=== PATIENT | male | born 1940 | race Caucasian/White ===

== ENCOUNTER 2021-04-13 09:42 | Emergency (ER) | payer OTHER, MEDICARE ==
[2021-04-13] MEDS ORDERED: Sodium Chloride 0.9% 10 ML Syringe FLUSH PRN (09:47)
--- NOTE | 2021-04-13 09:53 | EDM.PDOC ---
ED HPI GENERAL MEDICAL PROBLEM - General Chief Complaint: Back Pain or Injury Stated Complaint: LEFT LOWER BACK PAIN Time Seen by Provider: 04/13/21 09:44 - History of Present Illness INITIAL COMMENTS - FREE TEXT/NARRATIVE: Harpal, 80-year-old male, presents with left-sided back pain/flank pain that became severe this morning. He is somewhat restricted in his activities secondary of a "fractured neck" with cervical collar in place. He denies any activity, actually is experiencing lessened activity, due to his health that would have promoted this. States he has recent knee replacement roughly 6 weeks with coincidence of wh eelchair positioning that tipped leading to the cervical fracture. Claims his knee is hot and has a cooling device that they use for that. Has not used it in the past 24 hours. Denies chest pain shortness of breath or bowel issues. Denies fever chills or any other health concerns. No exposure or risk for COVID-19. Vaccinated with Moderna including booster. Onset: Today, Sudden Duration: Minutes:, Resolved Prior to Arrival, Waxing/Waning Location: Reports: Back Quality: Reports: Sharp Severity: Severe Improves with: Reports: None Worsens with: Reports: Movement - Related Data Allergies Allergy/AdvReac Type Severity Reaction Status Date / Time No Known Drug Allergies Allergy Cannot Verified 04/13/21 09:56 Remember Home Meds: Home Meds Digoxin [Lanoxin] 0.25 mg PO DAILY 01/03/15 [History] Acetaminophen [Tylenol] 650 mg PO Q4H 04/13/21 [History] Apixaban [Eliquis] 5 mg PO BID 04/13/21 [History] Carboxymethylcellulose Sodium [Refresh Tears 0.5%] 1 drop EYEBOTH TID PRN 04/13/21 [History] Diclofenac Sodium [Voltaren 1% Gel] 2 g TOP QID PRN 04/13/21 [History] Finasteride [Proscar] 5 mg PO DAILY 04/13/21 [History] Magnesium Hydroxide [Milk of Magnesia] 30 ml PO BID PRN 04/13/21 [History] Melatonin 3 mg PO BEDTIME 04/13/21 [History] Metoprolol Succinate [Toprol Xl] 75 mg PO BID 04/13/21 [History] Mineral Oil/Petrolatum,White [Hydrocerin Crm] 1 applic TOP BID PRN 04/13/21 [History] Sennosides/Docusate Sodium [Senna-Docusate Sodium Tablet] 2 tab PO BID 04/13/21 [History] Past Medical History Cardiovascular History: Reports: None Respiratory History: Reports: None Gastrointestinal History: Reports: Chronic Constipation Genitourinary History: Reports: None Musculoskeletal History: Reports: Fracture (cervical), Neck Pain, Chronic Neurological History: Reports: None Psychiatric History: Reports: None - Past Surgical History Musculoskeletal Surgical History: Reports: Joint Replacement (right knee) Social & Family History - Family History Family Medical History: No Pertinent Family History - Tobacco Use Tobacco Use Status *Q: Former Tobacco User - Living Situation & Occupation Living situation: Reports: with Family ED ROS GENERAL - Review of Systems Review Of Systems: Comprehensive ROS is negative, except as noted in HPI. ED EXAM, GENERAL - Physical Exam Exam: See Below Free Text/Narrative:: Alert, oriented, able to arise from the ambulance cart, stand, ambulate and pivot to the bed with slight pain in the left lower back/posterior flank region. He has a cervical brace in place that he states he removes only for bathing and has no motion/limited motion until it is replaced. This is been in place for roughly 6 weeks in association with the same timing for his knee replacement to the right side which she states remains "hot" and has a device at home for cooling. Infection was ruled out. Thorax is mildly diminished with no wheezes nor crackles. Cardiac S1-S2 with a grade 1 systolic murmur best heard at the base. Abdomen is soft bowel sounds are present with no tenderness, he acknowledges chronic constipation using prune juice daily. There is no pain to percussion of the flank with no pain worsened/to induce to deep palpation with him stating "you cannot touch it it is deep inside". His right lower extremity is swollen at the knee and warm to touch with no erythema, well healed slightly darkened incisional line/scar. There is edema to the lower extremity with skin warm and dry. Left lower extremity is benign cool to touch and no edema. rectal is deferred. Course - Vital Signs Last Recorded V/S: Last Vital Signs Temp 97 F 04/13/21 09:51 Pulse 85 04/13/21 10:54 Resp 20 04/13/21 09:56 BP 128/65 04/13/21 10:54 Pulse Ox 95 04/13/21 10:54 - Orders/Labs/Meds Orders: Active Orders 24 hr Category Date Time Status Peripheral IV Care [RC] . DIRECTED Care 04/13/21 09:47 Active Sodium Chloride 0.9% [Normal Saline] 1,000 ml Med 04/13/21 10:00 Active IV ASDIRECTED Sodium Chloride 0.9% [Saline Flush] Med 04/13/21 09:47 Active 10 ml FLUSH Q8HR PRN Peripheral IV Insertion Adult [OM.PC] Stat Oth 04/13/21 09:47 Ordered Medication Orders Sodium Chloride (Normal Saline) 1,000 mls @ 500 mls/hr IV ASDIRECTED SLOANE Last Admin: 04/13/21 09:58 Dose: 500 mls/hr Documented by: KAREY Sodium Chloride (Sodium Chloride 0.9% 10 Ml Syringe) 10 ml FLUSH Q8HR PRN PRN Reason: keep vein open Labs: Laboratory Tests 04/13/21 04/13/21 04/13/21 Range/Units 09:45 09:45 09:45 WBC 6.30 (5.00-10.00) 10^3/uL RBC 5.04 (4.50-6.00) 10^6/uL Hgb 14.9 (13.0-17.0) g/dL Hct 45.7 (40.0-52.0) % MCV 90.7 (82.0-92.0) fL MCH 29.6 (27.0-31.0) pg MCHC 32.6 (32.0-36.0) g/dL RDW 13.2 (11.5-14.5) % Plt Count 205 (150-400) 10^3/uL MPV 8.7 (7.4-10.4) fL Immature Gran % (Auto) 0.2 (0.0-5.0) % Neut % (Auto) 72.4 H (50.0-70.0) % Lymph % (Auto) 16.5 L (20.0-40.0) % [place] % (Auto) 9.5 H (2.0-8.0) % Eos % (Auto) 1.1 (1.0-3.0) % Baso % (Auto) 0.3 (0.0-1.0) % Neut # (Auto) 4.56 (2.50-7.00) 10^3/uL Lymph # (Auto) 1.04 (1.00-4.00) 10^3/uL [place] # (Auto) 0.60 (0.10-0.80) 10^3/uL Eos # (Auto) 0.07 L (0.10-0.30) 10^3/uL Baso # (Auto) 0.02 (0.00-0.10) 10^3/uL Immature Gran # (Auto) 0.01 (0.00-0.50) 10^3/uL PT (9.2-11.2) SEC INR (0.9-1.1) Sodium 142 (136-145) mmol/L Potassium 4.2 (3.5-5.1) mmol/L Chloride 103 (98-107) mmol/L Carbon Dioxide 29.6 (21.0-32.0) mmol/L Anion Gap 13.6 (5-15) mmol/L BUN 14 (7-18) mg/dL Creatinine 0.65 (0.51-1.17) mg/dL Est Cr Clr Drug Dosing 103.63 mL/min Estimated GFR (MDRD) > 60 mL/min Glucose 123 (70-140) mg/dL Lactic Acid 1.0 (0.4-2.0) mmol/L Calcium 8.6 L (8.7-10.3) mg/dL Total Bilirubin 1.0 (0.2-1.0) mg/dL AST 23 (15-37) U/L ALT 22 (14-63) U/L Alkaline Phosphatase 90 (46-116) U/L Creatine Kinase 66 (26-276) U/L C-Reactive Protein 2.3 H (0.0-0.9) mg/dL Total Protein 7.4 (6.4-8.2) g/dL Albumin 3.30 L (3.40-5.00) g/dL 04/13/21 Range/Units 09:45 WBC (5.00-10.00) 10^3/uL RBC (4.50-6.00) 10^6/uL Hgb (13.0-17.0) g/dL Hct (40.0-52.0) % MCV (82.0-92.0) fL MCH (27.0-31.0) pg MCHC (32.0-36.0) g/dL RDW (11.5-14.5) % Plt Count (150-400) 10^3/uL MPV (7.4-10.4) fL Immature Gran % (Auto) (0.0-5.0) % Neut % (Auto) (50.0-70.0) % Lymph % (Auto) (20.0-40.0) % [place] % (Auto) (2.0-8.0) % Eos % (Auto) (1.0-3.0) % Baso % (Auto) (0.0-1.0) % Neut # (Auto) (2.50-7.00) 10^3/uL Lymph # (Auto) (1.00-4.00) 10^3/uL [place] # (Auto) (0.10-0.80) 10^3/uL Eos # (Auto) (0.10-0.30) 10^3/uL Baso # (Auto) (0.00-0.10) 10^3/uL Immature Gran # (Auto) (0.00-0.50) 10^3/uL PT 10.4 (9.2-11.2) SEC INR 1.0 (0.9-1.1) Sodium (136-145) mmol/L Potassium (3.5-5.1) mmol/L Chloride (98-107) mmol/L Carbon Dioxide (21.0-32.0) mmol/L Anion Gap (5-15) mmol/L BUN (7-18) mg/dL Creatinine (0.51-1.17) mg/dL Est Cr Clr Drug Dosing mL/min Estimated GFR (MDRD) mL/min Glucose (70-140) mg/dL Lactic Acid (0.4-2.0) mmol/L Calcium (8.7-10.3) mg/dL Total Bilirubin (0.2-1.0) mg/dL AST (15-37) U/L ALT (14-63) U/L Alkaline Phosphatase (46-116) U/L Creatine Kinase (26-276) U/L C-Reactive Protein (0.0-0.9) mg/dL Total Protein (6.4-8.2) g/dL Albumin (3.40-5.00) g/dL Meds: Medications Generic Name Dose Route Start Last Admin Trade Name Raj PRN Reason Stop Dose Admin Sodium Chloride 1,000 mls @ 500 mls/hr 04/13/21 10:00 04/13/21 09:58 Normal Saline IV 500 mls/hr ASDIRECTED SLOANE Administration Sodium Chloride 10 ml 04/13/21 09:47 Sodium Chloride 0.9% 10 Ml Syringe FLUSH Q8HR PRN keep vein open - Re-Assessments/Exams Free Text/Narrative Re-Assessment/Exam: 04/13/21 11:53 Detailed discussion with Harpal as well as his daughter and regarding the findings of today's testing. There is nothing specific in testing results other than coincidence of stool formation, diverticulosis, and his lumbar spine deficiencies noted on today's testing. Strongly interim monitoring concerns and [facility]. Departure - Departure Time of Disposition: 11:51 Disposition: Home, Self-Care 01 Condition: Good Clinical Impression: Back pain, History of right knee joint replacement, Cholelithiasis, Degenerative arthritis of lumbar spine, Bilateral inguinal hernia without ob struction or gangrene, History of cervical fracture - Discharge Information *PRESCRIPTION DRUG MONITORING PROGRAM REVIEWED*: Not Applicable *COPY OF PRESCRIPTION DRUG MONITORING REPORT IN PATIENT VANESA: Not Applicable Instructions: Inguinal Hernia, Adult, [id number], Cholelithiasis, Chronic Back Pain Referrals: PCP,Not In Area [Primary Care Provider] - Forms: ED Department Discharge Additional Instructions: There were no specific findings on testing today to account for your spasm type back pain. CT findings show you have stones in your gallbladder without any acute cholecystitis. You have degenerative changes in your hips and spine. You have diverticulosis without acute diverticulitis. You have a significant amount of stool present. Findings in the liver are suggestive of possible cirrhosis. You may benefit from increasing your bowel medication regimen until you have a productive large/soft stool. You should increase your fluid intake maintaining 6 to 8 glasses of water daily. You should continue with the cooling device for your right knee to control the inflammation and warmth. Continue with your physical therapy as directed, mentioning to them your discomfort. Continue all your medications otherwise as directed. I recommend contacting the [facility] in [place] to schedule an appointment as able to get him to discuss these findings with them, prior to your annual examination in July. Contact your clinic or return to the emergency department outside of clinic hours. Sepsis Event Note (ED) - Focused Exam Vital Signs: Vital Signs Temp Pulse Resp BP Pulse Ox 04/13/21 10:54 85 128/65 95 04/13/21 10:17 88 128/66 95 04/13/21 09:56 87 20 153/71 H 94 L 04/13/21 09:51 97 F 109 H 20 173/99 H 94 L - Problem List & Annotations (1) Back pain SNOMED Code(s): 080277219 Code(s): M54.9 - DORSALGIA, UNSPECIFIED Status: Acute Current Visit: Yes Qualifiers: Back pain location: low back pain Chronicity: acute Back pain laterality: left Sciatica presence: without sciatica Qualified Code(s): M54.50 - Low back pain, unspecified (2) History of cervical fracture SNOMED Code(s): 822834584, 913439979 Code(s): Z87.81 - PERSONAL HISTORY OF (HEALED) TRAUMATIC FRACTURE Status: Acute Current Visit: Yes Annotation/Comment:: Now experienced a refracture 6 weeks ago and is in a collar for that. (3) History of right knee joint replacement SNOMED Code(s): 977566711, 616432238 Code(s): Z96.651 - PRESENCE OF RIGHT ARTIFICIAL KNEE JOINT Status: Chronic Priority: Medium Current Visit: Yes (4) Degenerative arthritis of lumbar spine Status: Acute Current Visit: Yes Qualifiers: Spinal osteoarthritis complication: unspecified spinal osteoarthritis Qualified Code(s): M47.816 - Spondylosis without myelopathy or radiculopathy, lumbar region (5) Cholelithiasis SNOMED Code(s): 614351537 Code(s): K80.20 - CALCULUS OF GALLBLADDER W/O CHOLECYSTITIS W/O OBSTRUCTION Status: Acute Current Visit: Yes Qualifiers: Cholelithiasis location: gallbladder Cholecystitis presence: without cholecystitis Biliary obstruction: without biliary obstruction Qualified Code(s): K80.20 - Calculus of gallbladder without cholecystitis without obstruction (6) Bilateral inguinal hernia without obstruction or gangrene SNOMED Code(s): 45710771 Code(s): K40.20 - BI INGUINAL HERNIA, W/O OBST OR GANGRENE, NOT SPCF RECUR Status: Chronic Priority: Medium Current Visit: Yes Qualifiers: Recurrence: recurrent Qualified Code(s): K40.21 - Bilateral inguinal hernia, without obstruction or gangrene, recurrent - Problem List Review Problem List Initiated/Reviewed/Updated: Yes - My Orders Last 24 Hours: My Active Orders 04/13/21 09:47 Peripheral IV Care [RC] . DIRECTED Sodium Chloride 0.9% [Saline Flush] 10 ml FLUSH Q8HR PRN Peripheral IV Insertion Adult [OM.PC] Stat 04/13/21 10:00 Sodium Chloride 0.9% [Normal Saline] 1,000 ml IV ASDIRECTED - Assessment/Plan Last 24 Hours: My Active Orders 04/13/21 09:47 Peripheral IV Care [RC] . DIRECTED Sodium Chloride 0.9% [Saline Flush] 10 ml FLUSH Q8HR PRN Peripheral IV Insertion Adult [OM.PC] Stat 04/13/21 10:00 Sodium Chloride 0.9% [Normal Saline] 1,000 ml IV ASDIRECTED Plan: There were no specific findings on testing today to account for your spasm type back pain. CT findings show you have stones in your gallbladder without any acute cholecystitis. You have degenerative changes in your hips and spine. You have diverticulosis without acute diverticulitis. You have a significant amount of stool present. Findings in the liver are suggestive of possible cirrhosis. You may benefit from increasing your bowel medication regimen until you have a productive large/soft stool. You should increase your fluid intake maintaining 6 to 8 glasses of water daily. You should continue with the cooling device for your right knee to control the inflammation and warmth. Continue with your physical therapy as directed, mentioning to them your discomfort. Continue all your medications otherwise as directed. I recommend contacting the [facility] in [place] to schedule an appointment as able to get him to discuss these findings with them, prior to your annual examination in July. Contact your clinic or return to the emergency department outside of clinic hours.
[2021-04-13] MEDS ORDERED: Sodium Chloride 0.9% 1,000 ML IV SCH (10:00)
[2021-04-13 10:09] LABS: ANION GAP 13.6 mmol/L (5-15); CHLORIDE,CL 103 mmol/L (98-107); SODIUM,NA 142 mmol/L (136-145)
[2021-04-13 10:55] VITALS: BP 128/65; PULSE 85
--- NOTE | 2021-04-13 11:02 | CR ---
[id number] RAD/RAD Chest PA And Lateral EXAM: RAD Chest PA And Lateral INDICATION: BACK PAIN/IMMOBILIZATION. COMPARISON: None. DISCUSSION: Linear opacities in the lung bases, favor atelectasis or scarring. No definite infiltrates. Mild cardiomegaly without evidence of edema. No effusions. Mild hyperaeration. IMPRESSION: 1. Mild basilar atelectasis or scarring. 2. Mild cardiomegaly without evidence of edema. Guerrero Nelson MD 04/13/21 [id number] Thank you for allowing us to participate in the care of your patient.
--- NOTE | 2021-04-13 11:14 | CT ---
[id number] CT/CT Abdomen Pelvis WO IV EXAM: CT Abdomen Pelvis WO IV INDICATION: BACK PAIN/FLANK PAIN. CERVICAL IMMOBILIZATION. COMPARISON: None. DISCUSSION: Small right and [id number] left fat-containing inguinal hernias. Cholelithiasis without CT evidence of acute cholecystitis. Atherosclerotic plaque throughout the aorta and its major branches. Cardiomegaly. Coronary calcifications. Focal posterior pleural calcifications along the left lower lobe. Dystrophic calcifications along the greater and lesser trochanters in the left most compatible with prior trauma. Degenerative changes in the hips and spine including slight spondylolisthesis L4-L5 and L5-S1. The osseous structures are otherwise unremarkable. The liver has a mildly nodular contour suggesting underlying cirrhosis. Scattered diverticula of the colon without evidence of diverticulitis. Unenhanced images of the pancreas, spleen, adrenal glands, kidneys, small bowel, and the appendix are unremarkable. No adenopathy, free air free fluid. IMPRESSION: 1. Cholelithiasis without CT evidence of acute cholecystitis. 2. No renal calculus or hydronephrosis. 3. Degenerative changes in the hips and spine. Guerrero Nelson MD 04/13/21 [id number] Thank you for allowing us to participate in the care of your patient.
[2021-04-13] MEDS ORDERED: Ketorolac 30 MG/ML SDV IM ONE (12:10)
[2021-04-13] MEDS ORDERED: Ketorolac 30 MG/ML SDV ONE (12:10)
== END 2021-04-13 12:30 | disposition home or self-care (01) ==
LOC: KA.ED 09:42
DX: M47.816 Spondylosis without myelopathy or radiculopathy, lumbar region (principal); K80.20 Calculus of gallbladder without cholecystitis without obstruction; K40.20 Bilateral inguinal hernia, without obstruction or gangrene, not specified as recurrent; Z96.651 Presence of right artificial knee joint; Z87.891 Personal history of nicotine dependence; Z79.01 Long term (current) use of anticoagulants; Z79.899 Other long term (current) drug therapy
CPT/HCPCS: 36415; 71046; 74176; 80053; 82550; 83605; 85025; 85610; 86140; 96372; 99284; 99284-25; J1885; J7030

== ENCOUNTER 2023-09-19 21:02 | Emergency (ER) | payer OTHER, MEDICARE ==
[2023-09-19] MEDS: Sodium Chloride 0.9% 10 ML Syringe FLUSH PRN (21:57)
[2023-09-19 22:12] LABS: BASOPHILS ABSOLUTE AUTO 0.01 10^3/uL (0.00-0.10); BASOPHILS PERCENT AUTO 0.2 % (0.0-1.0); EOSINOPHILS ABSOLUTE AUTO 0.02 10^3/uL (0.10-0.30); EOSINOPHILS PERCENT AUTO 0.3 % (1.0-3.0); HEMATOCRIT 43.6 % (40.0-52.0); HEMOGLOBIN 14.8 g/dL (13.0-17.0); IMMATURE GRAN ABSOLUTE AUTO 0.03 10^3/uL (0.00-0.50); IMMATURE GRAN PERCENT AUTO 0.5 % (0.0-5.0); LYMPHOCYTES ABSOLUTE AUTO 0.89 10^3/uL (1.00-4.00); LYMPHOCYTES PERCENT AUTO 15.1 % (20.0-40.0); MEAN CORPUSCULAR HEMOGLOBIN 31.8 pg (27.0-31.0); MEAN CORPUSCULAR HGB CONC 33.9 g/dL (32.0-36.0); MEAN CORPUSCULAR VOLUME 93.6 fL (82.0-92.0); MEAN PLATELET VOLUME 9.5 fL (7.4-10.4); MONOCYTES ABSOLUTE AUTO 0.54 10^3/uL (0.10-0.80); MONOCYTES PERCENT AUTO 9.1 % (2.0-8.0); NEUTROPHILS ABSOLUTE AUTO 4.42 10^3/uL (2.50-7.00); NEUTROPHILS PERCENT AUTO 74.8 % (50.0-70.0); PLATELET COUNT,PLT 165 10^3/uL (150-400); RED BLOOD CELL COUNT 4.66 10^6/uL (4.50-6.00); RED CELL DISTRIBUTION WIDTH 13.2 % (11.5-14.5); WHITE BLOOD CELL COUNT,WBC 5.91 10^3/uL (5.00-10.00)
[2023-09-19 22:30] LABS: ALANINE AMINOTRANSFERASE,ALT 16 U/L (14-63); ALKALINE PHOSPHATASE 90 U/L (46-116); ANION GAP 9.4 mmol/L (5-15); ASPARTATE AMNIOTRANSFERASE,AST 18 U/L (15-37); BILIRUBIN TOTAL 2.3 mg/dL (0.2-1.0); BLOOD UREA NITROGEN,BUN 27 mg/dL (7-18); CALCIUM 8.8 mg/dL (8.7-10.3); CARBON DIOXIDE,CO2 33.3 mmol/L (21.0-32.0); CHLORIDE,CL 99 mmol/L (98-107); CREATININE 1.17 mg/dL (0.51-1.17); ESTIMATED GFR 61 mL/min (>=60); GLUCOSE RANDOM 190 mg/dL (70-140); POTASSIUM,K 4.7 mmol/L (3.5-5.1); PROTEIN TOTAL,TP 6.9 g/dL (6.4-8.2); SODIUM,NA 137 mmol/L (136-145)
[2023-09-20 02:32] VITALS: BP 118/43; PULSE 34
== END 2023-09-19 23:30 | disposition home or self-care (01) ==
LOC: KA.ED 21:02
DX: M54.2 Cervicalgia (principal); R00.1 Bradycardia, unspecified; I10 Essential (primary) hypertension; I48.91 Unspecified atrial fibrillation; Z79.899 Other long term (current) drug therapy; Z79.01 Long term (current) use of anticoagulants; W06.XXXA Fall from bed, initial encounter; Y92.009 Unspecified place in unspecified non-institutional (private) residence as the place of occurrence of the external cause
CPT/HCPCS: 36415; 70450; 71045; 72125; 80053; 84484; 85025; 93010; 99284; J3490